=== PATIENT | male | born 1980 | race African-American/Black ===

== ENCOUNTER 2022-10-11 20:18 | Emergency (ER) | payer SELFPAY ==
[2022-10-11] MEDS ORDERED: Dexamethasone 10 MG/ML VIAL ONE (21:34)
== END 2022-10-11 20:40 | disposition home or self-care (01) ==
LOC: CSHERS 20:18
DX: T63.461A Toxic effect of venom of wasps, accidental (unintentional), initial encounter (principal); F17.210 Nicotine dependence, cigarettes, uncomplicated
CPT/HCPCS: 96372; 99282; J1100